=== PATIENT | male | born 1945 | race Caucasian/White ===

== ENCOUNTER 2020-11-11 07:16 | Inpatient (IN) | payer MEDICARE, OTHER ==
[~2020-11-11] VITALS: Ht 177.8 cm; Wt 128.0 kg
[~2020-11-11 07:16] MED LIST: PRED20TA PO; RANI-366 PO; [UNRECOGNIZED DRUG - CODE] PO
[2020-11-11] MEDS ORDERED: dexamethasone inj 8 MG in normal saline 50ml IV soln 50 ML IV STA (08:02)
--- NOTE | 2020-11-11 08:48 | NUR ---
WISAM #[phone] CALL HER IF PT IS BEING DICHARGED
[2020-11-11 09:06] LABS: D-DIMER 1.17 MG/L FEU (0-0.50)
[2020-11-11 09:12] LABS: ABG BASE EXCESS -5.8 mmol/L (-2.0-2.0); ABG HCO3 17.4 mmol/L (22.0-26.0); ABG OXYGEN SATURATION 97.7 % (94-97); ABG PCO2 (T) 28.9 mmHg (35.0-48.0); ABG PO2 (T) 106.1 mmHg (75.0-100.0); ALLEN'S TEST POSITIVE; FCOHb 0.3 % (0.0-3.9); FLOW 5 L/min; FMetHb 0.1 % (0.0-1.5); FO2Hb 97.3 % (94-97); PATIENT TEMPERATURE 37.4; TOTAL HEMOGLOBIN 14.7 G/dl (14.0-18.0)
[2020-11-11 09:13] LABS: C-REACTIVE PROTEIN 7.09 MG/DL (0.0-0.5)
[2020-11-11 09:25] LABS: ALANINE AMINOTRANSFERASE 48 U/L (12-78); ALBUMIN 3.1 G/DL (3.4-5.0); ALBUMIN/GLOBULIN RATIO 0.8 (1.1-1.5); ALKALINE PHOSPHATASE 81 IU/L (46-116); ANION GAP 16 (8-16); ASPARTATE AMINO TRANSFERASE 64 U/L (10-37); BILIRUBIN,TOTAL 0.3 MG/DL (0.1-1.0); BLOOD UREA NITROGEN 39 MG/DL (7-18); BUN/CREATININE RATIO 18.3 (5.4-32.0); CHLORIDE 104 MMOL/L (99-107); CREATININE 2.13 MG/DL (0.60-1.10); GLUCOSE 142 MG/DL (70-104); POTASSIUM 3.4 MMOL/L (3.5-5.1); SODIUM 140 MMOL/L (135-145); TOTAL CARBON DIOXIDE 20.4 MMOL/L (24-32); TOTAL PROTEIN 6.9 G/DL (6.4-8.2); eGFR 30 ML/MIN
[2020-11-11 09:27] LABS: BASOPHILS % (AUTO) 0.1 % (0-1); EOSINOPHILS % (AUTO) 0 % (0-6); HEMATOCRIT 42.2 % (42.0-52.0); LYMPHOCYTES # (AUTO) 0.5 X10'3 (1.1-4.8); LYMPHOCYTES % (AUTO) 13.6 % (21-51); MEAN CORPUSCULAR HEMOGLOBIN 29.1 PG (27.0-31.0); MEAN CORPUSCULAR HGB CONC 33.3 g/dL (33.0-36.5); MEAN CORPUSCULAR VOLUME 87.5 FL (78-98); MEAN PLATELET VOLUME 9.7 FL (7.4-10.4); MONOCYTES # (AUTO) 0.4 X10'3 (0-0.9); MONOCYTES % (AUTO) 11.9 % (2-12); NEUTROPHILS # (AUTO) 2.7 X10'3 (1.8-7.7); NEUTROPHILS % (AUTO) 74.4 % (42-75); PLATELET COUNT 102 X10'3 (140-440); RED BLOOD COUNT 4.82 X10'6 (4.70-6.10); RED CELL DISTRIBUTION WIDTH 13.7 % (11.5-14.5); WHITE BLOOD COUNT 3.6 X10'3 (4.5-11.0)
[2020-11-11] MEDS ORDERED: enoxaparin 100mg/ml syringe SUBCUT ONE (09:40)
[2020-11-11] MEDS ORDERED: REMDESIVIR INJ 200 MG in normal saline 100ml IV soln 60 ML IV ONE (09:40)
[2020-11-11] MEDS ORDERED: heparin 25,000 UNIT/250ml bag 250 ML IV SCH (09:45)
[2020-11-11] MEDS ORDERED: heparin 10,000 units/1 ML INJ IV ONE ×2 (09:45→09:55)
[2020-11-11] MEDS ORDERED: iohexol 350MG/ML 100ml bottle IV ONE (09:50)
[2020-11-11 10:05] LABS: PARTIAL THROMBOPLASTIN TIME 32 SECONDS (22-32)
[2020-11-11] MEDS ORDERED: azithromycin/NS 500mg/250ml 250 ML IV ONE (10:50)
[2020-11-11] MEDS ORDERED: CefTRIAXone 2gm/D5W 50ml BAG 50 ML IV ONE (10:50)
[2020-11-11] MEDS ORDERED: PIOG15TA67 PO (11:51)
[2020-11-11] MEDS ORDERED: ATOR10TA70 PO (11:51)
[2020-11-11] MEDS ORDERED: LOSA1TAB39 PO (11:51)
[2020-11-11] MEDS ORDERED: ATEN25TA PO (11:51)
[2020-11-11] MEDS ORDERED: acetaminophen 325mg tablet PO PRN ×2 (12:45)
[2020-11-11] MEDS ORDERED: potassium Cl 20 mEq SR tablet PO PRN (12:45)
[2020-11-11] MEDS ORDERED: HYDROmorphone inj. 0.5 MG/0.5 ML DISP.SYRIN IV PRN (12:45)
[2020-11-11] MEDS ORDERED: magnesium 2GM in 50ml NS 50 ML IV PRN (12:45)
[2020-11-11] MEDS ORDERED: ALBUTEROL INHALER 1 PUFF/90 MCG INHALER IH PRN (12:45)
[2020-11-11] MEDS ORDERED: magnesium hydroxide 30ml (MOM) UD suspension PO PRN (12:45)
[2020-11-11] MEDS ORDERED: acetaminophen 650mg rectal suppository RC PRN (12:45)
[2020-11-11] MEDS ORDERED: potassium Cl 40MEQ/1/2NS 520ml 520 ML IV PRN ×2 (12:45)
[2020-11-11] MEDS ORDERED: HYDROcodone/acetaminophen 5mg/325mg tablet PO PRN (12:45)
[2020-11-11] MEDS ORDERED: magnesium Cl slow-release 64mg tablet PO PRN (12:45)
[2020-11-11] MEDS ORDERED: magnesium 4gm in 100ml NS 100 ML IV PRN (12:45)
[2020-11-11] MEDS ORDERED: mag hydrox/Alum hydrox/simeth 30ml oral suspension PO PRN (12:45)
[2020-11-11] MEDS ORDERED: ondansetron/PF 4mg/2ml inj IV PRN (12:45)
[2020-11-11] MEDS ORDERED: bisacodyl 10mg suppository rectal RC PRN (12:45)
--- NOTE | 2020-11-11 14:06 | NUR ---
ATTEMPTED TO CALL REPORT TO THE FLOOR. NURSE IS BUSY AND WILL CALL BACK WHEN ABLE.
--- NOTE | 2020-11-11 14:23 | NUR ---
RECEIVED REPORT FROM EVERETTE FINNEY IN ER. PT GOING TO [id number]
[2020-11-11] MEDS: heparin, porcine 5000 units/ml vial SQ SCH (16:00)
[2020-11-11 16:30] VITALS: BP 137/84
[2020-11-11] MEDS: normal saline 1000ml 1,000 ML IV SCH (16:30)
--- NOTE | 2020-11-11 16:30 | NUR ---
PT ARRIVED TO FLOOR AT 1610
[2020-11-11] MEDS ORDERED: MESSAGE TO PHARMACY PO ONE (16:40)
[2020-11-11] MEDS ORDERED: dextrose 50%-water 50ml dispensing syringe IV PRN ×2 (16:40)
[2020-11-11] MEDS ORDERED: glucagon, human recombinant 1mg kit SUBCUT PRN (16:40)
[2020-11-11] MEDS ORDERED: dextrose ORAL solution 15 GM/59 ML bottle PO PRN ×2 (16:40)
[2020-11-11] MEDS: potassium Cl 20 mEq SR tablet PO PRN ×2 (16:56→20:50)
--- NOTE | 2020-11-11 18:15 | NUR ---
Problems reprioritized. Patient report given, questions answered & plan of care reviewed with EVERETTE AMES.
[2020-11-11] MEDS: K and/or MAG REPLACEMENT MC SCH (20:00)
[2020-11-11] MEDS: dexamethasone inj 6 MG in normal saline 50ml IV soln 50 ML IV SCH (20:35)
[2020-11-11] MEDS: docusate sod 100mg capsule PO SCH (20:37)
[2020-11-11] MEDS: famotidine 20mg tablet PO SCH (20:37)
[2020-11-11] MEDS: insulin glargine (Lantus) pen - multi-dose SQ SCH (20:49)
[2020-11-11] MEDS ORDERED: temazepam 15mg capsule PO PRN (21:00)
[2020-11-11 22:00] VITALS: BP 122/69
--- NOTE | 2020-11-11 22:19 | NUR ---
Pt stated he will try to sleep without the BIPAP tonight. Pt stated he will use our BiPAP if he feels he needs one after sleeping tonight.
[2020-11-12] MEDS: normal saline 1000ml 1,000 ML IV SCH ×3 (00:33→19:37)
[2020-11-12] MEDS: potassium Cl 20 mEq SR tablet PO PRN (00:35)
[2020-11-12] MEDS: heparin, porcine 5000 units/ml vial SQ SCH ×4 (00:35→23:38)
[2020-11-12 01:58] VITALS: BP 133/72
[2020-11-12 06:00] VITALS: BP 141/82
--- NOTE | 2020-11-12 06:05 | NUR ---
RECEIVED REPORT FROM EVERETTE AMES
--- NOTE | 2020-11-12 06:24 | NUR ---
Problems reprioritized. Patient report given, questions answered & plan of care reviewed with EVERETTE VALDEZ.
[2020-11-12] MEDS: K and/or MAG REPLACEMENT MC SCH ×2 (07:01→20:00)
[2020-11-12] MEDS: HYDROcodone/acetaminophen 10/325mg tab PO PRN (07:16)
[2020-11-12] MEDS: losartan 50mg tablet PO SCH (07:17)
[2020-11-12] MEDS: atorvastatin 10mg tablet PO SCH (07:18)
[2020-11-12] MEDS: atenolol 25mg tablet PO SCH (07:18)
[2020-11-12] MEDS: HYDROchlorothiazide 25mg tablet PO SCH (07:18)
[2020-11-12] MEDS: famotidine 20mg tablet PO SCH ×2 (07:18→19:29)
[2020-11-12] MEDS: dexamethasone inj 6 MG in normal saline 50ml IV soln 50 ML IV SCH ×2 (07:25→19:29)
[2020-11-12] MEDS: pioglitazone 15mg tablet PO SCH (07:30)
[2020-11-12] MEDS: docusate sod 100mg capsule PO SCH ×2 (07:30→20:00)
[2020-11-12] MEDS ORDERED: non-formulary drug (Losartan/Hydrochlorothiazide (Losartan-Hctz 100-25 Mg Tab) 1 TAB) PO SCH (08:00)
[2020-11-12] MEDS ORDERED: REMDESIVIR INJ 100 MG in normal saline 100ml IV soln 80 ML IV SCH (08:00)
[2020-11-12 08:33] LABS: BASOPHILS % (AUTO) 0.1 % (0-1); EOSINOPHILS % (AUTO) 0.1 % (0-6); HEMATOCRIT 43.1 % (42.0-52.0); HEMOGLOBIN 14.1 g/dl (14.0-17.9); LYMPHOCYTES # (AUTO) 0.5 X10'3 (1.1-4.8); LYMPHOCYTES % (AUTO) 12.2 % (21-51); MEAN CORPUSCULAR HEMOGLOBIN 28.5 PG (27.0-31.0); MEAN CORPUSCULAR HGB CONC 32.8 g/dL (33.0-36.5); MEAN CORPUSCULAR VOLUME 86.7 FL (78-98); MEAN PLATELET VOLUME 9.6 FL (7.4-10.4); MONOCYTES # (AUTO) 0.2 X10'3 (0-0.9); MONOCYTES % (AUTO) 6.1 % (2-12); NEUTROPHILS % (AUTO) 81.5 % (42-75); PLATELET COUNT 114 X10'3 (140-440); RED BLOOD COUNT 4.97 X10'6 (4.70-6.10); RED CELL DISTRIBUTION WIDTH 13.5 % (11.5-14.5); WHITE BLOOD COUNT 3.7 X10'3 (4.5-11.0)
[2020-11-12] MEDS: insulin Lispro (HumaLOG) vial - multi-dose SQ SCH ×3 (08:56→19:25)
[2020-11-12] MEDS: REMDESIVIR 100 MG in NS 100ml IVPB IV SCH (08:59)
[2020-11-12 09:02] LABS: ALANINE AMINOTRANSFERASE 45 U/L (12-78); ALBUMIN/GLOBULIN RATIO 0.7 (1.1-1.5); ALKALINE PHOSPHATASE 82 IU/L (46-116); ANION GAP 17 (8-16); ASPARTATE AMINO TRANSFERASE 68 U/L (10-37); BILIRUBIN,TOTAL 0.4 MG/DL (0.1-1.0); BLOOD UREA NITROGEN 37 MG/DL (7-18); BUN/CREATININE RATIO 16.8 (5.4-32.0); C-REACTIVE PROTEIN 6.63 MG/DL (0.0-0.5); CALCIUM 8.3 MG/DL (8.5-10.1); CHLORIDE 105 MMOL/L (99-107); GLUCOSE 205 MG/DL (70-104); LACTATE DEHYDROGENASE 340 U/L (85-227); MAGNESIUM 1.5 MG/DL (1.5-2.4); PHOSPHORUS 2.1 MG/DL (2.3-4.5); POTASSIUM 4.4 MMOL/L (3.5-5.1); SODIUM 142 MMOL/L (135-145); TOTAL CARBON DIOXIDE 19.7 MMOL/L (24-32); TOTAL PROTEIN 7.1 G/DL (6.4-8.2); eGFR 29 ML/MIN
[2020-11-12 09:44] LABS: D-DIMER 2.08 MG/L FEU (0-0.50); PARTIAL THROMBOPLASTIN TIME 31 SECONDS (22-32)
[2020-11-12 10:00] VITALS: BP 129/71
--- NOTE | 2020-11-12 12:08 | NUR ---
DM Consult: Pt hx T2DM A1C 7.0 appropriate given age. Addendum: 11/12/20 at [address] Amended: Links added.
[2020-11-12 14:00] VITALS: BP 133/78
[2020-11-12 18:00] VITALS: BP 121/65
--- NOTE | 2020-11-12 18:06 | NUR ---
GAVE REPORT TO EVERETTE AMES
[2020-11-12] MEDS: insulin glargine (Lantus) pen - multi-dose SQ SCH (21:19)
[2020-11-13 02:00] VITALS: BP 100/60
[2020-11-13] MEDS: normal saline 1000ml 1,000 ML IV SCH ×3 (05:59→23:47)
--- NOTE | 2020-11-13 06:37 | NUR ---
Patient in room ORTHO 4010. I have received report from Vanda GAVIRIA and had the opportunity to ask questions and assume patient care.
[2020-11-13 06:38] VITALS: BP 105/54
[2020-11-13] MEDS: REMDESIVIR 100 MG in NS 100ml IVPB IV SCH (07:16)
[2020-11-13] MEDS: dexamethasone inj 6 MG in normal saline 50ml IV soln 50 ML IV SCH ×2 (07:16→19:52)
[2020-11-13] MEDS: atorvastatin 10mg tablet PO SCH (07:16)
[2020-11-13] MEDS: docusate sod 100mg capsule PO SCH ×3 (07:16→20:00)
[2020-11-13] MEDS: famotidine 20mg tablet PO SCH ×2 (07:16→19:52)
[2020-11-13] MEDS: pioglitazone 15mg tablet PO SCH (07:16)
[2020-11-13] MEDS: heparin, porcine 5000 units/ml vial SQ SCH ×3 (07:17→23:47)
[2020-11-13] MEDS: atenolol 25mg tablet PO SCH (08:00)
[2020-11-13] MEDS: HYDROchlorothiazide 25mg tablet PO SCH (08:00)
[2020-11-13] MEDS: K and/or MAG REPLACEMENT MC SCH ×2 (08:00→19:42)
[2020-11-13] MEDS: losartan 50mg tablet PO SCH (08:00)
[2020-11-13 08:45] LABS: BASOPHILS % (AUTO) 0.1 % (0-1); EOSINOPHILS % (AUTO) 0 % (0-6); HEMATOCRIT 45.3 % (42.0-52.0); HEMOGLOBIN 15.1 g/dl (14.0-17.9); LYMPHOCYTES # (AUTO) 0.8 X10'3 (1.1-4.8); LYMPHOCYTES % (AUTO) 6.9 % (21-51); MEAN CORPUSCULAR HEMOGLOBIN 28.8 PG (27.0-31.0); MEAN CORPUSCULAR HGB CONC 33.2 g/dL (33.0-36.5); MEAN CORPUSCULAR VOLUME 86.8 FL (78-98); MEAN PLATELET VOLUME 10.2 FL (7.4-10.4); MONOCYTES # (AUTO) 0.6 X10'3 (0-0.9); MONOCYTES % (AUTO) 5.1 % (2-12); NEUTROPHILS # (AUTO) 10.2 X10'3 (1.8-7.7); NEUTROPHILS % (AUTO) 87.9 % (42-75); PLATELET COUNT 143 X10'3 (140-440); RED BLOOD COUNT 5.22 X10'6 (4.70-6.10); WHITE BLOOD COUNT 11.6 X10'3 (4.5-11.0)
[2020-11-13 09:00] LABS: D-DIMER 2.22 MG/L FEU (0-0.50); PARTIAL THROMBOPLASTIN TIME 30 SECONDS (22-32)
[2020-11-13 09:13] LABS: ALANINE AMINOTRANSFERASE 50 U/L (12-78); ALBUMIN/GLOBULIN RATIO 0.7 (1.1-1.5); ALKALINE PHOSPHATASE 86 IU/L (46-116); ANION GAP 16 (8-16); ASPARTATE AMINO TRANSFERASE 89 U/L (10-37); BILIRUBIN,TOTAL 0.3 MG/DL (0.1-1.0); BLOOD UREA NITROGEN 40 MG/DL (7-18); BUN/CREATININE RATIO 17.9 (5.4-32.0); C-REACTIVE PROTEIN 3.56 MG/DL (0.0-0.5); CALCIUM 8.4 MG/DL (8.5-10.1); CHLORIDE 105 MMOL/L (99-107); CREATININE 2.23 MG/DL (0.60-1.10); GLUCOSE 175 MG/DL (70-104); LACTATE DEHYDROGENASE 441 U/L (85-227); MAGNESIUM 1.5 MG/DL (1.5-2.4); PHOSPHORUS 2.6 MG/DL (2.3-4.5); SODIUM 143 MMOL/L (135-145); TOTAL PROTEIN 7.2 G/DL (6.4-8.2); eGFR 29 ML/MIN
[2020-11-13] MEDS: insulin Lispro (HumaLOG) vial - multi-dose SQ SCH ×3 (10:18→19:51)
[2020-11-13 13:09] VITALS: BP 116/70
[2020-11-13 16:38] VITALS: BP 120/75
[2020-11-13 18:00] VITALS: BP 153/78
--- NOTE | 2020-11-13 18:21 | NUR ---
Problems reprioritized. Patient report given, questions answered & plan of care reviewed with Shayy GAVIRIA.
--- NOTE | 2020-11-13 18:45 | NUR ---
Patient in room ORTHO 4010. I have received report from Laila GAVIRIA and had the opportunity to ask questions and assume patient care.
[2020-11-13 22:00] VITALS: BP 136/70
[2020-11-13] MEDS: insulin glargine (Lantus) pen - multi-dose SQ SCH (22:05)
[2020-11-14 02:00] VITALS: BP 169/90
--- NOTE | 2020-11-14 06:11 | NUR ---
Problems reprioritized. Patient report given, questions answered & plan of care reviewed with Laila GAVIRIA.
--- NOTE | 2020-11-14 06:22 | NUR ---
Patient in room ORTHO 4010. I have received report from Shayy GAVIRIA and had the opportunity to ask questions and assume patient care.
[2020-11-14 06:34] VITALS: BP 169/92
[2020-11-14] MEDS: REMDESIVIR 100 MG in NS 100ml IVPB IV SCH (06:54)
[2020-11-14] MEDS: dexamethasone inj 6 MG in normal saline 50ml IV soln 50 ML IV SCH ×2 (06:54→19:47)
[2020-11-14] MEDS: atorvastatin 10mg tablet PO SCH (06:55)
[2020-11-14] MEDS: docusate sod 100mg capsule PO SCH ×2 (06:55→19:36)
[2020-11-14] MEDS: famotidine 20mg tablet PO SCH ×2 (06:55→19:47)
[2020-11-14] MEDS: HYDROchlorothiazide 25mg tablet PO SCH (06:55)
[2020-11-14] MEDS: atenolol 25mg tablet PO SCH (06:55)
[2020-11-14] MEDS: pioglitazone 15mg tablet PO SCH (06:55)
[2020-11-14] MEDS: heparin, porcine 5000 units/ml vial SQ SCH ×2 (06:56→16:10)
[2020-11-14 07:52] LABS: BASOPHILS % (AUTO) 0 % (0-1); EOSINOPHILS % (AUTO) 0 % (0-6); HEMATOCRIT 40.8 % (42.0-52.0); HEMOGLOBIN 13.7 g/dl (14.0-17.9); LYMPHOCYTES # (AUTO) 0.4 X10'3 (1.1-4.8); LYMPHOCYTES % (AUTO) 4.8 % (21-51); MEAN CORPUSCULAR HEMOGLOBIN 29.2 PG (27.0-31.0); MEAN CORPUSCULAR HGB CONC 33.6 g/dL (33.0-36.5); MEAN PLATELET VOLUME 9.6 FL (7.4-10.4); MONOCYTES # (AUTO) 0.6 X10'3 (0-0.9); MONOCYTES % (AUTO) 6.8 % (2-12); NEUTROPHILS # (AUTO) 7.7 X10'3 (1.8-7.7); NEUTROPHILS % (AUTO) 88.4 % (42-75); PLATELET COUNT 115 X10'3 (140-440); RED BLOOD COUNT 4.69 X10'6 (4.70-6.10); RED CELL DISTRIBUTION WIDTH 13.8 % (11.5-14.5); WHITE BLOOD COUNT 8.7 X10'3 (4.5-11.0)
[2020-11-14] MEDS: K and/or MAG REPLACEMENT MC SCH ×2 (08:00→19:36)
[2020-11-14] MEDS: losartan 50mg tablet PO SCH (08:00)
[2020-11-14 08:35] LABS: ALANINE AMINOTRANSFERASE 42 U/L (12-78); ALBUMIN 2.6 G/DL (3.4-5.0); ALBUMIN/GLOBULIN RATIO 0.8 (1.1-1.5); ALKALINE PHOSPHATASE 70 IU/L (46-116); ANION GAP 13 (8-16); ASPARTATE AMINO TRANSFERASE 73 U/L (10-37); BILIRUBIN,TOTAL 0.3 MG/DL (0.1-1.0); BLOOD UREA NITROGEN 36 MG/DL (7-18); BUN/CREATININE RATIO 21.1 (5.4-32.0); C-REACTIVE PROTEIN 1.77 MG/DL (0.0-0.5); CALCIUM 8.5 MG/DL (8.5-10.1); CHLORIDE 110 MMOL/L (99-107); CREATININE 1.71 MG/DL (0.60-1.10); GLUCOSE 188 MG/DL (70-104); LACTATE DEHYDROGENASE 380 U/L (85-227); MAGNESIUM 1.6 MG/DL (1.5-2.4); PHOSPHORUS 2.6 MG/DL (2.3-4.5); POTASSIUM 4.1 MMOL/L (3.5-5.1); SODIUM 143 MMOL/L (135-145); TOTAL CARBON DIOXIDE 20.5 MMOL/L (24-32); eGFR 39 ML/MIN
[2020-11-14 08:47] LABS: PARTIAL THROMBOPLASTIN TIME 33 SECONDS (22-32)
[2020-11-14] MEDS: insulin Lispro (HumaLOG) vial - multi-dose SQ SCH ×4 (09:38→22:35)
[2020-11-14] MEDS: normal saline 1000ml 1,000 ML IV SCH ×2 (10:45→19:48)
[2020-11-14 12:27] VITALS: BP 119/64
[2020-11-14] MEDS: ALBUTEROL INHALER 1 PUFF/90 MCG INHALER IH PRN (13:18)
--- NOTE | 2020-11-14 13:23 | NUR ---
O2 Sat at rest on room air:_87__% If below 89%: Recovery O2 Sat at rest on __4_LPM:__92_%:___% via (mask/nasal cannula, etc..) No further documentation is necessary. If O2 Sat did not drop below 89% on room air,ambulate patient on room air. O2 Sat while ambulating on room air:___% Recovery O2 Sat while ambulating on ___LPM:___% No further documentation is necessary. If patient does not drop below 89% while ambulating, he/she does not qualify for home O2.
[2020-11-14 16:59] VITALS: BP 117/63
[2020-11-14 18:00] VITALS: BP 108/65
--- NOTE | 2020-11-14 18:25 | NUR ---
Problems reprioritized. Patient report given, questions answered & plan of care reviewed with Sahyy GAVIRIA.
--- NOTE | 2020-11-14 18:27 | NUR ---
Patient in room ORTHO 4010. I have received report from Laila GAVIRIA and had the opportunity to ask questions and assume patient care.
[2020-11-14 22:00] VITALS: BP 146/72
[2020-11-14] MEDS: insulin glargine (Lantus) pen - multi-dose SQ SCH (22:35)
[2020-11-15] MEDS: heparin, porcine 5000 units/ml vial SQ SCH ×3 (01:21→16:32)
[2020-11-15 02:00] VITALS: BP_SYST 102; BP_SYST 108; BP_DIAS 51; BP_DIAS 56
--- NOTE | 2020-11-15 06:06 | NUR ---
Problems reprioritized. Patient report given, questions answered & plan of care reviewed with Laila GAVIRIA.
[2020-11-15 06:22] VITALS: BP 138/73
[2020-11-15] MEDS: dexamethasone inj 6 MG in normal saline 50ml IV soln 50 ML IV SCH ×2 (06:55→19:29)
[2020-11-15] MEDS: REMDESIVIR 100 MG in NS 100ml IVPB IV SCH (06:55)
[2020-11-15] MEDS: atorvastatin 10mg tablet PO SCH (06:55)
[2020-11-15] MEDS: famotidine 20mg tablet PO SCH ×2 (06:56→19:29)
[2020-11-15] MEDS: atenolol 25mg tablet PO SCH (06:56)
[2020-11-15] MEDS: pioglitazone 15mg tablet PO SCH (06:56)
[2020-11-15] MEDS: HYDROchlorothiazide 25mg tablet PO SCH (06:56)
[2020-11-15] MEDS: normal saline 1000ml 1,000 ML IV SCH ×2 (06:57→16:45)
[2020-11-15] MEDS: docusate sod 100mg capsule PO SCH ×2 (07:13→19:13)
[2020-11-15] MEDS: losartan 50mg tablet PO SCH (08:00)
[2020-11-15] MEDS: K and/or MAG REPLACEMENT MC SCH ×2 (08:00→19:11)
[2020-11-15] MEDS: insulin Lispro (HumaLOG) vial - multi-dose SQ SCH ×3 (08:56→19:31)
[2020-11-15 10:13] LABS: BASOPHILS % (AUTO) 0 % (0-1); EOSINOPHILS % (AUTO) 0 % (0-6); HEMATOCRIT 42.2 % (42.0-52.0); HEMOGLOBIN 13.9 g/dl (14.0-17.9); LYMPHOCYTES # (AUTO) 0.3 X10'3 (1.1-4.8); LYMPHOCYTES % (AUTO) 3.7 % (21-51); MEAN CORPUSCULAR HEMOGLOBIN 28.8 PG (27.0-31.0); MEAN CORPUSCULAR HGB CONC 32.9 g/dL (33.0-36.5); MEAN CORPUSCULAR VOLUME 87.7 FL (78-98); MEAN PLATELET VOLUME 9.7 FL (7.4-10.4); MONOCYTES # (AUTO) 0.6 X10'3 (0-0.9); MONOCYTES % (AUTO) 7.6 % (2-12); NEUTROPHILS # (AUTO) 7.2 X10'3 (1.8-7.7); NEUTROPHILS % (AUTO) 88.7 % (42-75); PLATELET COUNT 124 X10'3 (140-440); RED BLOOD COUNT 4.81 X10'6 (4.70-6.10); WHITE BLOOD COUNT 8.1 X10'3 (4.5-11.0)
[2020-11-15 10:20] LABS: PARTIAL THROMBOPLASTIN TIME 28 SECONDS (22-32)
[2020-11-15 10:26] LABS: ALANINE AMINOTRANSFERASE 46 U/L (12-78); ALBUMIN 2.7 G/DL (3.4-5.0); ALBUMIN/GLOBULIN RATIO 0.8 (1.1-1.5); ALKALINE PHOSPHATASE 71 IU/L (46-116); ANION GAP 15 (8-16); ASPARTATE AMINO TRANSFERASE 63 U/L (10-37); BILIRUBIN,TOTAL 0.5 MG/DL (0.1-1.0); BLOOD UREA NITROGEN 31 MG/DL (7-18); BUN/CREATININE RATIO 17.1 (5.4-32.0); C-REACTIVE PROTEIN 1.08 MG/DL (0.0-0.5); CALCIUM 8.9 MG/DL (8.5-10.1); CHLORIDE 110 MMOL/L (99-107); CREATININE 1.81 MG/DL (0.60-1.10); GLUCOSE 260 MG/DL (70-104); LACTATE DEHYDROGENASE 429 U/L (85-227); MAGNESIUM 1.7 MG/DL (1.5-2.4); PHOSPHORUS 2.1 MG/DL (2.3-4.5); POTASSIUM 4.2 MMOL/L (3.5-5.1); SODIUM 146 MMOL/L (135-145); TOTAL CARBON DIOXIDE 21.3 MMOL/L (24-32); TOTAL PROTEIN 6.3 G/DL (6.4-8.2); eGFR 37 ML/MIN
[2020-11-15 10:37] VITALS: BP 148/88
[2020-11-15 10:52] LABS: D-DIMER 1.66 MG/L FEU (0-0.50)
[2020-11-15] MEDS ORDERED: PRED10TA23 PO (12:28)
[2020-11-15] MEDS ORDERED: ALBU8.5H17 INH (12:28)
[2020-11-15] MEDS ORDERED: BENZ-16 PO (12:28)
[2020-11-15] MEDS ORDERED: ASPI-611 PO (12:28)
--- NOTE | 2020-11-15 13:13 | NUR ---
Initial: Pt admit DX COVID-19 PNA, acute respiratory failure w/ hypoxemia improving, HTN, and DM per EMR. PO ~50-75% avg heart healthy/carb controlled meals partially meeting needs. SHELBY recommends ensure high protein TIDWM to better meet protein needs; notified. LBM 11/15 diarrhea per EMR. Will continue to monitor for additional protein/kcal needs this admit. Rec: 1. continue carb controlled/heart healthy diet; encourage PO 2. Ensure High Protein TIDWM; pending MD verification in EMR 3. bowel care per rx; consider anti-diarrheal if diarrhea persists and MD agreeable 4. weekly wts Addendum: 11/15/20 at [address] Amended: Links added.
--- NOTE | 2020-11-15 17:31 | NUR ---
Tech came to get me regarding patients oxygen saturation being 85%. While in the room patients oxygen got down to 78%. Applied 15 liters high flow salter and 15 liters non rebreather. Oxygen came up to 97%. While patient sleeps he is desaturating. Placed page to hospitalist asking for ABG. ABG ordered.
[2020-11-15 18:00] VITALS: BP 129/70
[2020-11-15 18:05] LABS: ABG BASE EXCESS -3.4 mmol/L (-2.0-2.0); ABG OXYGEN SATURATION 89.8 % (94-97); ABG PCO2 (T) 31.4 mmHg (35.0-48.0); ABG PO2 (T) 56.3 mmHg (75.0-100.0); ALLEN'S TEST POSITIVE; FCOHb 0.3 % (0.0-3.9); FLOW 15 L/min; FMetHb 0.1 % (0.0-1.5); FO2Hb 89.4 % (94-97); TOTAL HEMOGLOBIN 13.3 G/dl (14.0-18.0)
--- NOTE | 2020-11-15 18:15 | NUR ---
PAGER ID: [phone] MESSAGE: [id number], Kiya patient is only on heparin and the respiratory therapist said his blood from his ABG clotted multiple times. I don't know if you would rather do weight based lovenox considering his history of pulmonary embolism? rio [phone]
--- NOTE | 2020-11-15 18:30 | NUR ---
Patient in room ORTHO 4009. I have received report from Laila GAVIRIA and had the opportunity to ask questions and assume patient care.
--- NOTE | 2020-11-15 18:38 | NUR ---
PAGER ID: [phone] MESSAGE: [id number], Amna o2 at rest is 78%, no on 15 high flow salter and 15 non rebreather. Can i get a blood gas please? rio [phone]
--- NOTE | 2020-11-15 18:48 | NUR ---
Problems reprioritized. Patient report given, questions answered & plan of care reviewed with Shayy GAVIRIA.
[2020-11-15] MEDS: lactose-reduced food (Ensure High Protein) 237ml bottle PO SCH (18:59)
--- NOTE | 2020-11-15 19:06 | NUR ---
Pt switch from heparin to 100mg Lovenox BID. Pt last received heparin at 1632. Spoke with pharmacist he said it would be okay to give the dose of Lovenox at 2000 per orders.
[2020-11-15] MEDS: HYDROcodone/acetaminophen 10/325mg tab PO PRN (19:29)
[2020-11-15 22:00] VITALS: BP 165/96
--- NOTE | 2020-11-15 22:00 | NUR ---
Upon pts approval, spoke with daughter Gayatri I updated her on the pts status and plan of care. He needed a little more supplemental oxygen today after activity, up to 10-15L. She would like to updated on the pts status daily so she has an idea on when to expect him home. She lives out of town and is planning on coming to stay with him for a while once he is discharged.
[2020-11-15] MEDS: enoxaparin 100mg/ml syringe SUBCUT SCH (22:15)
[2020-11-15] MEDS: insulin glargine (Lantus) pen - multi-dose SQ SCH (22:20)
--- NOTE | 2020-11-16 00:28 | NUR ---
Pt oxygen has improved. He was on 10L at 100% I bumped him down gradually, he is now on 5L at 92%. Will continue to monitor.
[2020-11-16 02:00] VITALS: BP 151/86
[2020-11-16] MEDS: normal saline 1000ml 1,000 ML IV SCH ×3 (02:45→23:52)
[2020-11-16 06:30] VITALS: BP 142/80
--- NOTE | 2020-11-16 06:37 | NUR ---
Problems reprioritized. Patient report given, questions answered & plan of care reviewed with Iman GAVIRIA.
[2020-11-16] MEDS: lactose-reduced food (Ensure High Protein) 237ml bottle PO SCH ×3 (08:00→18:08)
[2020-11-16] MEDS: K and/or MAG REPLACEMENT MC SCH ×2 (08:00→20:00)
[2020-11-16] MEDS: HYDROchlorothiazide 25mg tablet PO SCH (08:13)
[2020-11-16] MEDS: atenolol 25mg tablet PO SCH (08:13)
[2020-11-16] MEDS: famotidine 20mg tablet PO SCH ×2 (08:13→19:27)
[2020-11-16] MEDS: docusate sod 100mg capsule PO SCH ×2 (08:13→19:27)
[2020-11-16] MEDS: losartan 50mg tablet PO SCH (08:13)
[2020-11-16] MEDS: pioglitazone 15mg tablet PO SCH (08:13)
[2020-11-16] MEDS: dexamethasone inj 6 MG in normal saline 50ml IV soln 50 ML IV SCH ×2 (08:13→19:27)
[2020-11-16] MEDS: atorvastatin 10mg tablet PO SCH (08:13)
[2020-11-16 08:18] LABS: BASOPHILS % (AUTO) 0.1 % (0-1); EOSINOPHILS % (AUTO) 0 % (0-6); HEMATOCRIT 41.3 % (42.0-52.0); HEMOGLOBIN 13.8 g/dl (14.0-17.9); LYMPHOCYTES # (AUTO) 0.3 X10'3 (1.1-4.8); LYMPHOCYTES % (AUTO) 3.5 % (21-51); MEAN CORPUSCULAR HEMOGLOBIN 29.2 PG (27.0-31.0); MEAN CORPUSCULAR HGB CONC 33.4 g/dL (33.0-36.5); MEAN CORPUSCULAR VOLUME 87.5 FL (78-98); MEAN PLATELET VOLUME 9.8 FL (7.4-10.4); MONOCYTES # (AUTO) 0.8 X10'3 (0-0.9); MONOCYTES % (AUTO) 9.5 % (2-12); NEUTROPHILS # (AUTO) 7.7 X10'3 (1.8-7.7); NEUTROPHILS % (AUTO) 86.9 % (42-75); PLATELET COUNT 131 X10'3 (140-440); RED BLOOD COUNT 4.72 X10'6 (4.70-6.10); RED CELL DISTRIBUTION WIDTH 14.1 % (11.5-14.5); WHITE BLOOD COUNT 8.8 X10'3 (4.5-11.0)
[2020-11-16] MEDS: enoxaparin 100mg/ml syringe SUBCUT SCH ×2 (08:21→19:27)
[2020-11-16 09:00] LABS: ALANINE AMINOTRANSFERASE 45 U/L (12-78); ALBUMIN 2.7 G/DL (3.4-5.0); ALBUMIN/GLOBULIN RATIO 0.8 (1.1-1.5); ALKALINE PHOSPHATASE 70 IU/L (46-116); ANION GAP 9 (8-16); ASPARTATE AMINO TRANSFERASE 54 U/L (10-37); BILIRUBIN,TOTAL 0.5 MG/DL (0.1-1.0); BLOOD UREA NITROGEN 37 MG/DL (7-18); BUN/CREATININE RATIO 22.2 (5.4-32.0); C-REACTIVE PROTEIN 0.68 MG/DL (0.0-0.5); CALCIUM 8.9 MG/DL (8.5-10.1); CHLORIDE 112 MMOL/L (99-107); CREATININE 1.67 MG/DL (0.60-1.10); GLUCOSE 202 MG/DL (70-104); MAGNESIUM 1.8 MG/DL (1.5-2.4); PHOSPHORUS 2.4 MG/DL (2.3-4.5); POTASSIUM 4.3 MMOL/L (3.5-5.1); SODIUM 146 MMOL/L (135-145); TOTAL CARBON DIOXIDE 25.3 MMOL/L (24-32); TOTAL PROTEIN 6.1 G/DL (6.4-8.2); eGFR 40 ML/MIN
[2020-11-16 09:03] LABS: D-DIMER 2.29 MG/L FEU (0-0.50); PARTIAL THROMBOPLASTIN TIME 32 SECONDS (22-32)
[2020-11-16 10:00] VITALS: BP 171/92
[2020-11-16 10:03] LABS: LACTATE DEHYDROGENASE 375 U/L (85-227)
[2020-11-16] MEDS: insulin Lispro (HumaLOG) vial - multi-dose SQ SCH ×3 (10:22→19:26)
--- NOTE | 2020-11-16 10:57 | NUR ---
DM Consult: Pt hx T2DM A1C 7.0 appropriate given age. Addendum: 11/16/20 at [address] Amended: Links added.
[2020-11-16 14:00] VITALS: BP 121/75
[2020-11-16 18:00] VITALS: BP 123/67
--- NOTE | 2020-11-16 18:30 | NUR ---
Problems reprioritized. Patient report given, questions answered & plan of care reviewed with LENI GAVIRIA.
[2020-11-16] MEDS: insulin glargine (Lantus) pen - multi-dose SQ SCH (21:44)
[2020-11-16 22:00] VITALS: BP 201/105
--- NOTE | 2020-11-16 22:24 | NUR ---
Page Sent PAGER ID: [phone] MESSAGE: call collins or cynthia at [phone] pt. has very high BP in 4009B. No PRN orders.
--- NOTE | 2020-11-16 22:30 | NUR ---
REC'D VERBAL ORDER FOR HYDROLAZINE Q6HRS PRN FOR ELEVATED B/P. WILL CONTINUE TO MONITOR
[2020-11-16] MEDS: hydrALAZINE 25 MG tablet PO PRN (23:45)
[2020-11-17] MEDS: hydrALAZINE 25 MG tablet PO PRN (05:35)
[2020-11-17 06:27] VITALS: BP 173/80
--- NOTE | 2020-11-17 06:49 | NUR ---
TISHA ADMINISTERED THIS AM FOR ELEVATED B/P AND REPORTED TO ONCOMING RNBRITTA. SLEPT MOST OF THE SHIFT AND UP AT BEDSIDE TO VOID PER URINAL. BLOOD SUGAR LAST NIGHT AT HS BETTER CONTROLLED.
[2020-11-17] MEDS: famotidine 20mg tablet PO SCH ×2 (07:51→20:01)
[2020-11-17] MEDS: HYDROchlorothiazide 25mg tablet PO SCH (07:51)
[2020-11-17] MEDS: atenolol 25mg tablet PO SCH (07:51)
[2020-11-17] MEDS: atorvastatin 10mg tablet PO SCH (07:52)
[2020-11-17] MEDS: pioglitazone 15mg tablet PO SCH (07:52)
[2020-11-17] MEDS: enoxaparin 100mg/ml syringe SUBCUT SCH ×2 (07:52→20:06)
[2020-11-17] MEDS: losartan 50mg tablet PO SCH (07:52)
[2020-11-17] MEDS: docusate sod 100mg capsule PO SCH ×2 (07:52→20:01)
[2020-11-17] MEDS: lactose-reduced food (Ensure High Protein) 237ml bottle PO SCH ×3 (08:00→18:05)
[2020-11-17] MEDS: K and/or MAG REPLACEMENT MC SCH ×2 (08:00→20:00)
[2020-11-17] MEDS: dexamethasone inj 6 MG in normal saline 50ml IV soln 50 ML IV SCH ×2 (08:03→20:07)
[2020-11-17 08:41] LABS: BASOPHILS % (AUTO) 0 % (0-1); EOSINOPHILS % (AUTO) 0 % (0-6); HEMATOCRIT 42.6 % (42.0-52.0); HEMOGLOBIN 14.1 g/dl (14.0-17.9); LYMPHOCYTES # (AUTO) 0.5 X10'3 (1.1-4.8); LYMPHOCYTES % (AUTO) 4.1 % (21-51); MEAN CORPUSCULAR HEMOGLOBIN 28.9 PG (27.0-31.0); MEAN CORPUSCULAR HGB CONC 33.1 g/dL (33.0-36.5); MEAN CORPUSCULAR VOLUME 87.6 FL (78-98); MONOCYTES # (AUTO) 1.1 X10'3 (0-0.9); MONOCYTES % (AUTO) 9.7 % (2-12); NEUTROPHILS % (AUTO) 86.2 % (42-75); PLATELET COUNT 149 X10'3 (140-440); RED BLOOD COUNT 4.87 X10'6 (4.70-6.10); RED CELL DISTRIBUTION WIDTH 13.7 % (11.5-14.5); WHITE BLOOD COUNT 11.6 X10'3 (4.5-11.0)
[2020-11-17 09:16] LABS: D-DIMER 1.46 MG/L FEU (0-0.50); PARTIAL THROMBOPLASTIN TIME 32 SECONDS (22-32)
[2020-11-17 09:33] LABS: C-REACTIVE PROTEIN 0.38 MG/DL (0.0-0.5); PHOSPHORUS 2.7 MG/DL (2.3-4.5)
--- NOTE | 2020-11-17 09:44 | NUR ---
PT REFUSING MOM AT THIS TIME
[2020-11-17 10:00] VITALS: BP 124/73
[2020-11-17] MEDS: insulin Lispro (HumaLOG) vial - multi-dose SQ SCH ×3 (10:01→20:05)
[2020-11-17] MEDS: normal saline 1000ml 1,000 ML IV SCH ×2 (10:04→20:09)
[2020-11-17 14:00] VITALS: BP 119/72
[2020-11-17 18:00] VITALS: BP 111/61
--- NOTE | 2020-11-17 18:17 | NUR ---
Problems reprioritized. Patient report given, questions answered & plan of care reviewed with LENI GAVIRIA.
[2020-11-17 22:00] VITALS: BP 138/79
[2020-11-17] MEDS: insulin glargine (Lantus) pen - multi-dose SQ SCH (22:50)
--- NOTE | 2020-11-18 01:50 | NUR ---
Patient sat up to void and his oxygen saturation decreased to the mid 70%range but it did come back up to 88% on 15liters high flow and 15 liters NRB mask after about 5-10 minutes
[2020-11-18 02:00] VITALS: BP 117/77
--- NOTE | 2020-11-18 06:20 | NUR ---
received report from clementina marie
--- NOTE | 2020-11-18 07:01 | NUR ---
VERBAL REPORT GIVEN TO JOSÉ MIGUEL GAVIRIA
[2020-11-18] MEDS: dexamethasone inj 6 MG in normal saline 50ml IV soln 50 ML IV SCH ×2 (07:28→21:34)
[2020-11-18] MEDS: pioglitazone 15mg tablet PO SCH (07:33)
[2020-11-18] MEDS: docusate sod 100mg capsule PO SCH ×2 (07:35→20:00)
[2020-11-18] MEDS: HYDROchlorothiazide 25mg tablet PO SCH (07:36)
[2020-11-18] MEDS: losartan 50mg tablet PO SCH (07:36)
[2020-11-18] MEDS: atenolol 25mg tablet PO SCH (07:37)
[2020-11-18] MEDS: famotidine 20mg tablet PO SCH ×2 (07:37→21:34)
[2020-11-18] MEDS: atorvastatin 10mg tablet PO SCH (07:37)
[2020-11-18] MEDS: enoxaparin 100mg/ml syringe SUBCUT SCH ×2 (07:39→21:34)
[2020-11-18] MEDS: normal saline 1000ml 1,000 ML IV SCH ×2 (07:41→17:12)
[2020-11-18 08:00] VITALS: BP 114/61
[2020-11-18] MEDS: K and/or MAG REPLACEMENT MC SCH ×2 (08:00→20:00)
[2020-11-18] MEDS: lactose-reduced food (Ensure High Protein) 237ml bottle PO SCH ×3 (08:47→18:30)
[2020-11-18 09:08] LABS: BASOPHILS % (AUTO) 0.2 % (0-1); EOSINOPHILS % (AUTO) 0 % (0-6); HEMATOCRIT 39.8 % (42.0-52.0); HEMOGLOBIN 13.7 g/dl (14.0-17.9); LYMPHOCYTES # (AUTO) 0.4 X10'3 (1.1-4.8); MEAN CORPUSCULAR HEMOGLOBIN 29.2 PG (27.0-31.0); MEAN CORPUSCULAR HGB CONC 34.3 g/dL (33.0-36.5); MEAN CORPUSCULAR VOLUME 85.1 FL (78-98); MEAN PLATELET VOLUME 9.7 FL (7.4-10.4); MONOCYTES % (AUTO) 9.7 % (2-12); NEUTROPHILS # (AUTO) 8.7 X10'3 (1.8-7.7); NEUTROPHILS % (AUTO) 86.1 % (42-75); PLATELET COUNT 142 X10'3 (140-440); RED BLOOD COUNT 4.68 X10'6 (4.70-6.10); RED CELL DISTRIBUTION WIDTH 13.3 % (11.5-14.5); WHITE BLOOD COUNT 10.1 X10'3 (4.5-11.0)
[2020-11-18 09:22] LABS: PARTIAL THROMBOPLASTIN TIME 30 SECONDS (22-32)
--- NOTE | 2020-11-18 09:26 | NUR ---
pt is a level 6 for bg protocol, but his sugar is 117 and he only ate a few bites of his meal, i notified pharmacy that pt needs to refill for his short acting insulin, also pt took his actos this morning, continue to monitor
[2020-11-18 09:32] LABS: C-REACTIVE PROTEIN 0.47 MG/DL (0.0-0.5); MAGNESIUM 1.8 MG/DL (1.5-2.4); PHOSPHORUS 2.2 MG/DL (2.3-4.5)
[2020-11-18 09:44] LABS: D-DIMER 1.27 MG/L FEU (0-0.50)
[2020-11-18 10:23] LABS: LARGE PLATELETS MODERATE; PLATELET ESTIMATE NORMAL
[2020-11-18] MEDS: insulin Lispro (HumaLOG) vial - multi-dose SQ SCH (13:28)
[2020-11-18 15:28] VITALS: BP 121/68
--- NOTE | 2020-11-18 18:23 | NUR ---
gave report to may,
[2020-11-18 18:30] VITALS: BP 155/97
[2020-11-18] MEDS: insulin glargine (Lantus) pen - multi-dose SQ SCH (21:39)
[2020-11-18 22:00] VITALS: BP 156/83
[2020-11-19] MEDS: normal saline 1000ml 1,000 ML IV SCH ×2 (01:33→13:31)
[2020-11-19 02:00] VITALS: BP 149/84
[2020-11-19 06:00] VITALS: BP 161/87
--- NOTE | 2020-11-19 06:20 | NUR ---
received report from lenin, rn
[2020-11-19] MEDS: losartan 50mg tablet PO SCH (07:07)
[2020-11-19] MEDS: HYDROchlorothiazide 25mg tablet PO SCH (07:08)
[2020-11-19] MEDS: atorvastatin 10mg tablet PO SCH (07:08)
[2020-11-19] MEDS: famotidine 20mg tablet PO SCH ×2 (07:08→19:27)
[2020-11-19] MEDS: atenolol 25mg tablet PO SCH (07:08)
[2020-11-19] MEDS: dexamethasone inj 6 MG in normal saline 50ml IV soln 50 ML IV SCH ×2 (07:10→19:27)
[2020-11-19] MEDS: enoxaparin 100mg/ml syringe SUBCUT SCH ×2 (07:10→19:28)
[2020-11-19] MEDS: docusate sod 100mg capsule PO SCH ×2 (07:18→20:00)
[2020-11-19] MEDS: K and/or MAG REPLACEMENT MC SCH ×2 (08:00→20:00)
[2020-11-19] MEDS: lactose-reduced food (Ensure High Protein) 237ml bottle PO SCH ×3 (08:00→18:50)
[2020-11-19] MEDS: insulin Lispro (HumaLOG) vial - multi-dose SQ SCH ×2 (09:17→13:30)
[2020-11-19] MEDS: HYDROcodone/acetaminophen 10/325mg tab PO PRN (09:23)
[2020-11-19 09:26] LABS: BASOPHILS % (AUTO) 0.4 % (0-1); EOSINOPHILS % (AUTO) 0.1 % (0-6); HEMATOCRIT 41.2 % (42.0-52.0); HEMOGLOBIN 13.6 g/dl (14.0-17.9); LYMPHOCYTES # (AUTO) 0.3 X10'3 (1.1-4.8); LYMPHOCYTES % (AUTO) 3.7 % (21-51); MEAN CORPUSCULAR HEMOGLOBIN 28.8 PG (27.0-31.0); MEAN CORPUSCULAR VOLUME 87.1 FL (78-98); MEAN PLATELET VOLUME 10.1 FL (7.4-10.4); MONOCYTES # (AUTO) 0.5 X10'3 (0-0.9); MONOCYTES % (AUTO) 6.2 % (2-12); NEUTROPHILS # (AUTO) 7.7 X10'3 (1.8-7.7); NEUTROPHILS % (AUTO) 89.6 % (42-75); PLATELET COUNT 141 X10'3 (140-440); RED BLOOD COUNT 4.73 X10'6 (4.70-6.10); RED CELL DISTRIBUTION WIDTH 13.7 % (11.5-14.5); WHITE BLOOD COUNT 8.6 X10'3 (4.5-11.0)
[2020-11-19 09:38] LABS: D-DIMER 1.18 MG/L FEU (0-0.50); PARTIAL THROMBOPLASTIN TIME 32 SECONDS (22-32)
[2020-11-19 10:01] LABS: C-REACTIVE PROTEIN 3.82 MG/DL (0.0-0.5); PHOSPHORUS 2.6 MG/DL (2.3-4.5)
[2020-11-19 16:00] VITALS: BP 159/93
[2020-11-19] MEDS: hydrALAZINE 25 MG tablet PO PRN (17:26)
[2020-11-19 18:00] VITALS: BP 184/105
--- NOTE | 2020-11-19 18:19 | NUR ---
GAVE REPORT TO May,
[2020-11-19 19:30] VITALS: BP 148/74
[2020-11-19] MEDS: insulin glargine (Lantus) pen - multi-dose SQ SCH (21:09)
[2020-11-19 22:00] VITALS: BP 169/94
[2020-11-20 02:00] VITALS: BP 165/81
[2020-11-20] MEDS ORDERED: LIDOcaine 2% 10ml TOPICAL JELLY (Urojet) TP ONE (02:30)
[2020-11-20 07:24] LABS: BASOPHILS % (AUTO) 0.2 % (0-1); EOSINOPHILS % (AUTO) 0.1 % (0-6); HEMATOCRIT 41.8 % (42.0-52.0); LYMPHOCYTES # (AUTO) 0.3 X10'3 (1.1-4.8); LYMPHOCYTES % (AUTO) 2.8 % (21-51); MEAN CORPUSCULAR HEMOGLOBIN 29.1 PG (27.0-31.0); MEAN CORPUSCULAR HGB CONC 33.4 g/dL (33.0-36.5); MEAN CORPUSCULAR VOLUME 87.1 FL (78-98); MEAN PLATELET VOLUME 9.3 FL (7.4-10.4); MONOCYTES # (AUTO) 0.5 X10'3 (0-0.9); MONOCYTES % (AUTO) 5.3 % (2-12); NEUTROPHILS # (AUTO) 9.2 X10'3 (1.8-7.7); NEUTROPHILS % (AUTO) 91.6 % (42-75); PLATELET COUNT 143 X10'3 (140-440)
[2020-11-20 07:36] LABS: PARTIAL THROMBOPLASTIN TIME 30 SECONDS (22-32)
[2020-11-20 07:48] LABS: C-REACTIVE PROTEIN 5.9 MG/DL (0.0-0.5); PHOSPHORUS 2.6 MG/DL (2.3-4.5)
[2020-11-20] MEDS: famotidine 20mg tablet PO SCH ×2 (07:56→20:28)
[2020-11-20] MEDS: enoxaparin 100mg/ml syringe SUBCUT SCH ×2 (07:56→20:29)
[2020-11-20] MEDS: atorvastatin 10mg tablet PO SCH (07:56)
[2020-11-20] MEDS: atenolol 25mg tablet PO SCH (08:00)
[2020-11-20] MEDS: losartan 50mg tablet PO SCH (08:00)
[2020-11-20] MEDS: K and/or MAG REPLACEMENT MC SCH ×2 (08:00→20:00)
[2020-11-20] MEDS: lactose-reduced food (Ensure High Protein) 237ml bottle PO SCH ×3 (08:00→19:30)
[2020-11-20] MEDS: docusate sod 100mg capsule PO SCH ×2 (08:00→20:00)
[2020-11-20] MEDS: dexamethasone inj 6 MG in normal saline 50ml IV soln 50 ML IV SCH ×2 (11:47→20:28)
[2020-11-20] MEDS: HYDROchlorothiazide 25mg tablet PO SCH (11:47)
[2020-11-20] MEDS: insulin Lispro (HumaLOG) vial - multi-dose SQ SCH (13:53)
--- NOTE | 2020-11-20 14:36 | NUR ---
Reassessment: Pt PO significantly declined past 5 days mostly 0-25%/refusing meals and Ensures not meeting needs. On 15L high flow per RT note. LBM 11/19. LDH 2394 up from 479 and CRP 5.9 up from 3.82 since yesterday per EMR. Noted last CMP 11/16. SHELBY d/w RN regarding poor PO intake; per RN pt stating he will drink ensures however, noted pt refusing recent ONS. SHELBY [employer] regarding alternative nutrition to optimize nutrition intake this admit as well as for updated CMP if MD agreeable. TF recs below in case to start nutrition support. Will continue to monitor. Rec: 1. continue carb controlled/heart healthy diet; encourage PO 2. Ensure High Protein TIDWM; encourage PO 3. Consider NG nutrition if MD Agreeable given poor PO 5 days mostly 0-25%/refusing meals and ONS on high flow oxygen. IF TF Glucerna 1.2 at 85ml/hr goal; would provide 2040ml volume/day, 2448 kcals, 1652ml free water, and 122g protein. 4. IF TF; monitor for new CMP results to more accurately assess free water needs. Last CMP 11/16 5. bowel care per rx; consider anti-diarrheal if diarrhea persists and MD agreeable 6. weekly wts Addendum: 11/20/20 at [address] Amended: Links added.
[2020-11-20 18:00] VITALS: BP 151/72
[2020-11-20] MEDS ORDERED: benzonatate 100mg capsule PO PRN (19:20)
[2020-11-20] MEDS: insulin glargine (Lantus) pen - multi-dose SQ SCH (20:39)
[2020-11-20 22:00] VITALS: BP 134/63
[2020-11-21 02:00] VITALS: BP 168/89
[2020-11-21 06:00] VITALS: BP 162/74
--- NOTE | 2020-11-21 07:31 | NUR ---
pt sitting up in bed, c/o sob, 02 sat in the 70s, on HFNC and NRB . I turned the pt up past flush on both, had pt perform DBC/pulmonary toilet and placed pt in semi prone position (would not tolerate complete prone) pt sats came up to 89-92. I notified RT and asked them to reevaluate him.
[2020-11-21] MEDS: dexamethasone inj 6 MG in normal saline 50ml IV soln 50 ML IV SCH ×2 (07:48→19:36)
[2020-11-21] MEDS: docusate sod 100mg capsule PO SCH ×2 (07:49→19:35)
[2020-11-21] MEDS: enoxaparin 100mg/ml syringe SUBCUT SCH ×2 (07:49→19:35)
[2020-11-21] MEDS: atenolol 25mg tablet PO SCH (07:52)
[2020-11-21] MEDS: HYDROchlorothiazide 25mg tablet PO SCH (07:52)
[2020-11-21] MEDS: famotidine 20mg tablet PO SCH ×2 (07:52→19:35)
[2020-11-21] MEDS: lactose-reduced food (Ensure High Protein) 237ml bottle PO SCH ×3 (07:52→18:01)
[2020-11-21] MEDS: losartan 50mg tablet PO SCH (07:52)
[2020-11-21] MEDS: atorvastatin 10mg tablet PO SCH (07:52)
[2020-11-21] MEDS: K and/or MAG REPLACEMENT MC SCH ×2 (08:00→19:27)
--- NOTE | 2020-11-21 08:16 | NUR ---
pt placed in prone position, o2 sats up to 91
[2020-11-21 08:33] LABS: BASOPHILS % (AUTO) 0 % (0-1); EOSINOPHILS % (AUTO) 0 % (0-6); LYMPHOCYTES # (AUTO) 0.2 X10'3 (1.1-4.8); LYMPHOCYTES % (AUTO) 2.1 % (21-51); MEAN CORPUSCULAR HGB CONC 33.3 g/dL (33.0-36.5); MEAN PLATELET VOLUME 9.8 FL (7.4-10.4); MONOCYTES # (AUTO) 0.3 X10'3 (0-0.9); MONOCYTES % (AUTO) 3.3 % (2-12); NEUTROPHILS # (AUTO) 10.1 X10'3 (1.8-7.7); NEUTROPHILS % (AUTO) 94.6 % (42-75); PLATELET COUNT 142 X10'3 (140-440); RED BLOOD COUNT 4.83 X10'6 (4.70-6.10); RED CELL DISTRIBUTION WIDTH 13.8 % (11.5-14.5); WHITE BLOOD COUNT 10.7 X10'3 (4.5-11.0)
[2020-11-21] MEDS: ALBUTEROL INHALER 1 PUFF/90 MCG INHALER IH PRN (08:40)
[2020-11-21 08:52] LABS: C-REACTIVE PROTEIN 10.65 MG/DL (0.0-0.5); PHOSPHORUS 2.8 MG/DL (2.3-4.5)
[2020-11-21 09:25] LABS: PARTIAL THROMBOPLASTIN TIME 30 SECONDS (22-32)
[2020-11-21] MEDS: insulin Lispro (HumaLOG) vial - multi-dose SQ SCH (09:25)
[2020-11-21 10:00] VITALS: BP 143/56
--- NOTE | 2020-11-21 11:14 | NUR ---
PAGER ID: [phone] MESSAGE: Noris [phone] re Mr Machado in [id number]- sats in 80's even on high flow tower, he sats in 90's when prone but I cant get him to do it. Can we get a sedative to help him tolerate it? Small dose?
[2020-11-21] MEDS: HYDROcodone/acetaminophen 10/325mg tab PO PRN (12:33)
--- NOTE | 2020-11-21 13:19 | NUR ---
Page Sent PAGER ID: [phone] MESSAGE: PAULINA 5199-RE: [facility]IG[facility] [place] [id number]...PT IN V TACH/V FIB HR 140'S PER ENGINE BOSS
[2020-11-21 14:00] VITALS: BP 100/49
--- NOTE | 2020-11-21 14:10 | NUR ---
PAGER ID: [phone] MESSAGE: Noris [phone] re Germán Woo- he is 80% on high flow tower, can we escalate to bipap? Pt states he wants to live
[2020-11-21] MEDS ORDERED: LORazepam 2 mg/ml vial IV ONE (15:50)
--- NOTE | 2020-11-21 17:41 | NUR ---
pt satting in the 70's on the cpap. Gave ativan and proned pt. Now at 91% and resting comfortably. Will continue to monitor
[2020-11-21 18:00] VITALS: BP 130/73
[2020-11-21 22:00] VITALS: BP 125/72
[2020-11-21] MEDS: insulin glargine (Lantus) pen - multi-dose SQ SCH (23:23)
[2020-11-22 02:00] VITALS: BP 134/74
[2020-11-22] MEDS: HYDROcodone/acetaminophen 10/325mg tab PO PRN ×2 (05:24→17:41)
[2020-11-22 06:00] VITALS: BP 122/80
--- NOTE | 2020-11-22 06:20 | NUR ---
Problems reprioritized. Patient report given, questions answered & plan of care reviewed with Noris GAVIRIA.
[2020-11-22] MEDS: lactose-reduced food (Ensure High Protein) 237ml bottle PO SCH ×3 (07:30→18:29)
[2020-11-22] MEDS: docusate sod 100mg capsule PO SCH ×2 (07:30→20:40)
[2020-11-22] MEDS: famotidine 20mg tablet PO SCH ×2 (07:30→20:40)
[2020-11-22] MEDS: atorvastatin 10mg tablet PO SCH (07:30)
[2020-11-22] MEDS: dexamethasone inj 6 MG in normal saline 50ml IV soln 50 ML IV SCH ×3 (07:30→22:52)
[2020-11-22] MEDS: enoxaparin 100mg/ml syringe SUBCUT SCH ×2 (07:31→20:40)
[2020-11-22] MEDS: atenolol 25mg tablet PO SCH (07:34)
[2020-11-22] MEDS: HYDROchlorothiazide 25mg tablet PO SCH (07:34)
[2020-11-22] MEDS: losartan 50mg tablet PO SCH (07:34)
[2020-11-22] MEDS: K and/or MAG REPLACEMENT MC SCH ×2 (08:00→20:00)
[2020-11-22 08:29] LABS: BASOPHILS % (AUTO) 0.3 % (0-1); EOSINOPHILS % (AUTO) 0 % (0-6); HEMATOCRIT 39.3 % (42.0-52.0); HEMOGLOBIN 12.8 g/dl (14.0-17.9); LYMPHOCYTES # (AUTO) 0.3 X10'3 (1.1-4.8); LYMPHOCYTES % (AUTO) 2.3 % (21-51); MEAN CORPUSCULAR HEMOGLOBIN 28.4 PG (27.0-31.0); MEAN CORPUSCULAR HGB CONC 32.6 g/dL (33.0-36.5); MEAN CORPUSCULAR VOLUME 87.1 FL (78-98); MONOCYTES # (AUTO) 0.4 X10'3 (0-0.9); MONOCYTES % (AUTO) 3.1 % (2-12); NEUTROPHILS # (AUTO) 11.2 X10'3 (1.8-7.7); NEUTROPHILS % (AUTO) 94.3 % (42-75); PLATELET COUNT 143 X10'3 (140-440); RED BLOOD COUNT 4.51 X10'6 (4.70-6.10); RED CELL DISTRIBUTION WIDTH 13.9 % (11.5-14.5); WHITE BLOOD COUNT 11.8 X10'3 (4.5-11.0)
[2020-11-22] MEDS: insulin Lispro (HumaLOG) vial - multi-dose SQ SCH ×2 (08:47→18:41)
[2020-11-22 09:03] LABS: C-REACTIVE PROTEIN 9.52 MG/DL (0.0-0.5); PHOSPHORUS 2.7 MG/DL (2.3-4.5)
[2020-11-22 09:34] LABS: PARTIAL THROMBOPLASTIN TIME 29 SECONDS (22-32)
[2020-11-22 10:00] VITALS: BP 102/54
[2020-11-22 10:08] LABS: D-DIMER 1.02 MG/L FEU (0-0.50)
--- NOTE | 2020-11-22 11:56 | NUR ---
pt 02 sat in mid 80's. Placed pt in prone position and 02 sat (once recovered) up to 94%
--- NOTE | 2020-11-22 12:42 | NUR ---
sat 96%
[2020-11-22 14:00] VITALS: BP 145/75
--- NOTE | 2020-11-22 15:44 | NUR ---
Denilson from Short stay here to start IV - I now have IV access so called pharmacy to make sure ok to hang decadron. Pharmacist Jose says ok to hang 0800 dose and will not interrupt timing of 2000 dose.
--- NOTE | 2020-11-22 15:57 | NUR ---
sats 95% prone
--- NOTE | 2020-11-22 17:17 | NUR ---
PAGER ID: [phone] MESSAGE: Noris [phone] kuldip Germán Woo- has poor po intake, can we start some IV fluids? He is doing well on cpap, prone, 95%.
[2020-11-22 18:00] VITALS: BP 107/59
--- NOTE | 2020-11-22 18:30 | NUR ---
Patient in room ORTHO 4011. I have received report from Noris GAVIRIA and had the opportunity to ask questions and assume patient care.
[2020-11-22] MEDS: normal saline 1000ml 1,000 ML IV SCH (20:41)
[2020-11-22] MEDS: insulin glargine (Lantus) pen - multi-dose SQ SCH (21:10)
[2020-11-22 22:00] VITALS: BP 116/57
--- NOTE | 2020-11-22 23:24 | NUR ---
Patient refusing to lay on side or lay prone, Daughter on speaker phone and patient upset with staffing that he can't have water whenever he wants, educated that staff needs to help with fluids due to his mask and patient's oxygen saturations drop down to 70's when trying to drink. Patient laying on back and 89% on CPAP right now.
[2020-11-23 02:00] VITALS: BP 119/73
[2020-11-23 06:00] VITALS: BP 105/59
--- NOTE | 2020-11-23 06:34 | NUR ---
Problems reprioritized. Patient report given, questions answered & plan of care reviewed with Noris GAVIRIA.
[2020-11-23] MEDS: dexamethasone inj 6 MG in normal saline 50ml IV soln 50 ML IV SCH (07:45)
[2020-11-23] MEDS: docusate sod 100mg capsule PO SCH ×2 (07:46→20:45)
[2020-11-23] MEDS: enoxaparin 100mg/ml syringe SUBCUT SCH ×2 (07:46→20:45)
[2020-11-23] MEDS: atorvastatin 10mg tablet PO SCH (07:46)
[2020-11-23] MEDS: famotidine 20mg tablet PO SCH ×2 (07:46→20:44)
[2020-11-23] MEDS: atenolol 25mg tablet PO SCH (08:00)
[2020-11-23] MEDS: HYDROchlorothiazide 25mg tablet PO SCH (08:00)
[2020-11-23] MEDS: losartan 50mg tablet PO SCH (08:00)
[2020-11-23] MEDS: K and/or MAG REPLACEMENT MC SCH (08:00)
[2020-11-23] MEDS: lactose-reduced food (Ensure High Protein) 237ml bottle PO SCH ×3 (08:00→18:52)
[2020-11-23 08:45] LABS: BASOPHILS % (AUTO) 0.1 % (0-1); EOSINOPHILS % (AUTO) 0 % (0-6); HEMATOCRIT 39.9 % (42.0-52.0); HEMOGLOBIN 13.2 g/dl (14.0-17.9); LYMPHOCYTES # (AUTO) 0.3 X10'3 (1.1-4.8); MEAN CORPUSCULAR HEMOGLOBIN 28.8 PG (27.0-31.0); MEAN CORPUSCULAR HGB CONC 33.1 g/dL (33.0-36.5); MEAN CORPUSCULAR VOLUME 87.1 FL (78-98); MEAN PLATELET VOLUME 9.8 FL (7.4-10.4); MONOCYTES # (AUTO) 0.4 X10'3 (0-0.9); MONOCYTES % (AUTO) 2.7 % (2-12); NEUTROPHILS # (AUTO) 14.6 X10'3 (1.8-7.7); NEUTROPHILS % (AUTO) 95.2 % (42-75); PLATELET COUNT 159 X10'3 (140-440); RED BLOOD COUNT 4.58 X10'6 (4.70-6.10); RED CELL DISTRIBUTION WIDTH 14.1 % (11.5-14.5); WHITE BLOOD COUNT 15.4 X10'3 (4.5-11.0)
[2020-11-23 09:11] LABS: ALANINE AMINOTRANSFERASE 32 U/L (12-78); ALBUMIN/GLOBULIN RATIO 0.5 (1.1-1.5); ALKALINE PHOSPHATASE 65 IU/L (46-116); ANION GAP 8 (8-16); ASPARTATE AMINO TRANSFERASE 47 U/L (10-37); BILIRUBIN,TOTAL 0.7 MG/DL (0.1-1.0); BLOOD UREA NITROGEN 53 MG/DL (7-18); BUN/CREATININE RATIO 30.6 (5.4-32.0); C-REACTIVE PROTEIN 11.12 MG/DL (0.0-0.5); CALCIUM 9.1 MG/DL (8.5-10.1); CHLORIDE 105 MMOL/L (99-107); CREATININE 1.73 MG/DL (0.60-1.10); GLUCOSE 228 MG/DL (70-104); LACTATE DEHYDROGENASE 517 U/L (85-227); PHOSPHORUS 2.5 MG/DL (2.3-4.5); POTASSIUM 3.9 MMOL/L (3.5-5.1); SODIUM 144 MMOL/L (135-145); TOTAL CARBON DIOXIDE 30.7 MMOL/L (24-32); TOTAL PROTEIN 6.3 G/DL (6.4-8.2); eGFR 39 ML/MIN
[2020-11-23 09:15] LABS: PARTIAL THROMBOPLASTIN TIME 29 SECONDS (22-32)
[2020-11-23 10:00] VITALS: BP 126/62
[2020-11-23] MEDS: insulin Lispro (HumaLOG) vial - multi-dose SQ SCH ×3 (10:17→18:39)
[2020-11-23 14:00] VITALS: BP 148/67
[2020-11-23] MEDS: HYDROcodone/acetaminophen 10/325mg tab PO PRN ×2 (15:32→22:34)
[2020-11-23] MEDS: normal saline 1000ml 1,000 ML IV SCH (15:56)
--- NOTE | 2020-11-23 17:23 | NUR ---
pt has been refusing to spend time in prone position. He will alternate side lying positions. Most of the time pt sats in the 85-87 range. He states he is tired of proning. I try to encourage him to prone because he sats 90-95% on bipap at 100%. I have consulted numerous times with RT, they have tried to adjust bipap settings to maximize his oxygenation, however he still ends up in the 83-86 range and takes longer to recover
--- NOTE | 2020-11-23 17:54 | NUR ---
F/u 11/23: Pt continues to have poor PO mostly 0% or refusing meals past 8 days overall 0-25% avg now since admit 12 days not meeting needs. Pt only drinking Ensure High Protein TIDWM providing 480 kcals and 48g protein per day. Noted pt refusing to lay or side or prone per EMR and today not recovering past 78% saturations per latest RT note. RD d/w RN and michelle WYNN regarding pt need for nutrition support at this juncture given poor nutrition status. RN reports pt likely to refuse corpak and likely not stable enough to place at this time; SHELBY martinez MD regarding temporary PPN since pt currently has peripheral IV as only access. Will likely need TPN to optimize nutrition status if unable to provide enteral nutrition. PPN recs below given pt needs. Given day 8 little nutrition in addition to mild weakness pt meets minimum non-severe malnutrition criteria; MD notified. Rec: 1. continue carb controlled/heart healthy diet; encourage PO 2. Ensure High Protein TIDWM; encourage PO. Consider Ensure Enlive ONS given only intake past 8 days 3. Consider NG nutrition if MD Agreeable given poor PO hx 8 days not meeting needs. IF TF Glucerna 1.2 at 85ml/hr goal; would provide 2040ml volume/day, 2448 kcals, 1652ml free water, and 122g protein. 4. IF TF; additional water flush 200ml Q4H; serum Na 144 this AM 5. IF pt not stable enough for NG feeds or refuses; consider PPN to assist in meeting nutrition needs given PIV only access. IF PN would ultimately benefit from TPN to meet protein/kcal needs. IF continuous PPN; 2:1 Clinimix E 4.25/10 at 106ml/hr w/ 100ml 20% intralipids to run separately at 8.33ml/hr for 12 hours each day. Would provide 2544ml volume, 108g AA, 254g DEX (1.38mg/kg/min), and 1496 total kcals. 6. bowel care per rx; consider anti-diarrheal if diarrhea persists and MD agreeable 7. weekly wts Addendum: 11/23/20 at [address] Amended: Links added.
--- NOTE | 2020-11-23 18:30 | NUR ---
Patient in room ORTHO 4011. I have received report from Noris GAVIRIA and had the opportunity to ask questions and assume patient care.
--- NOTE | 2020-11-23 19:00 | NUR ---
At bedside with MD, patients family would like to discuss with MD and patient comfort care but patient refusing to speak with MD and family about this option at this time.
--- NOTE | 2020-11-23 19:30 | NUR ---
Spoke with daughter and the family is on their way from out of the area. Educated the family on visitor policy. Family wants assistance with their father to sign a will. veterans services specialist consult placed. Family will arrive in the area in the morning.
[2020-11-23] MEDS ORDERED: magnesium Cl slow-release 64mg tablet PO PRN (20:15)
[2020-11-23] MEDS ORDERED: potassium Cl 20 mEq SR tablet PO PRN ×2 (20:15)
[2020-11-23] MEDS ORDERED: potassium Cl 40MEQ/1/2NS 520ml 520 ML IV PRN (20:15)
[2020-11-23] MEDS ORDERED: magnesium 4gm in 100ml NS 100 ML IV PRN (20:15)
[2020-11-23] MEDS: insulin glargine (Lantus) pen - multi-dose SQ SCH (21:04)
--- NOTE | 2020-11-23 21:11 | NUR ---
Patient's SpO2 dropped into 50's, 40's. Bipap settings increased while patient recovering. SpO2 reached 88%%. Settings left as indicated. Addendum: 11/23/20 at 2116 by [address] RT Amended: Links added.
[2020-11-23 22:00] VITALS: BP 117/66
--- NOTE | 2020-11-23 22:47 | NUR ---
Patient states he just wants to , Patient refusing to turn on side or prone. Patients oxygen saturation 70-80's while on back. MD called and given order for morphine. Code status discussed with doctor and needs to be revisited with daytime doctor and family.
[2020-11-23] MEDS: morphine 2 MG/ML inj. syringe IV PRN (23:15)
[2020-11-24] MEDS ORDERED: methylPREDNISolone sod succ 125mg/2ml vial IV SCH
[2020-11-24] MEDS: morphine 2 MG/ML inj. syringe IV PRN ×3 (01:37→07:32)
[2020-11-24 02:00] VITALS: BP 99/62
--- NOTE | 2020-11-24 03:25 | NUR ---
Patient states he wants to be made comfort care, paged but no response. Daughters drove all night from out of area. Per night nursing floor supervisor patients daughters are allowed to visit. Daughters educated on covid precautions. Per nursing floor supervisor this is end of life care so daughters can come visit.
[2020-11-24 05:30] VITALS: BP 99/63
--- NOTE | 2020-11-24 06:50 | NUR ---
Patient in room ORTHO 4011. I have received report from EVERETTE Real and had the opportunity to ask questions and assume patient care.
--- NOTE | 2020-11-24 06:55 | NUR ---
Problems reprioritized. Patient report given, questions answered & plan of care reviewed with Gabriela RN.
[2020-11-24] MEDS ORDERED: LORazepam 2 mg/ml vial IV PRN ×2 (07:45→10:45)
[2020-11-24] MEDS ORDERED: morphine 10mg/0.5ml (conc. morphine) oral syringe PO PRN (07:45)
[2020-11-24] MEDS ORDERED: morphine 2 MG/ML inj. syringe IV PRN (07:45)
[2020-11-24] MEDS ORDERED: morphine 10mg/ml inj. IV ONE (07:55)
[2020-11-24] MEDS ORDERED: K and/or MAG REPLACEMENT MC SCH (08:00)
[2020-11-24] MEDS ORDERED: LORazepam 2 mg/ml vial IV ONE (10:05)
--- NOTE | 2020-11-24 11:25 | NUR ---
RN IS TO DOCUMENT YES TO ALL APPLICABLE AREAS Pronouncement of : 1. Time Physician Notified:1130 2. Date of :11/24/2020 3. Time of : 1125 4. DNR/Withdraw life support documented:729 5. Monitor strip has been placed on chart:No. Pt was on tele monitor. 6. Assessment process is of one-minute duration and includes following criteria: a) Patient is unresponsive to all stimuli:Y b) Pupils fixed and non-reactive:Y c) Auscultation of precordium reveals absence of heart tones:Y d) Auscultation of lungs reveals absence of breath sounds:Y e) Absence of blood pressure / all vital signs:Y f) QRS complexes are not present on monitor / EKG strip:Y g) Pacer spikes without capture:N/A
--- NOTE | 2020-11-24 13:50 | NUR ---
F/u: Noted patient has been made NPO and code status has been changed to DNR with comfort care. [facility] 11/21. Will continue to follow per LOS. Recommendations: 1) Bowel care per comfort care measures Addendum: 11/24/20 at [address] Amended: Links added.
== END 2020-11-24 16:58 | DRG 177 ==
LOC: ER 07:16 → ED HOLD 12:53 → ORTHO 4S 16:20
PROVIDERS: ADMIT Family Medicine; ATTEND Family Medicine
PROC: XW033E5 Introduction of Remdesivir Anti-infective into Peripheral Vein, Percutaneous Approach, New Technology Group 5 (ICD-10-PCS; principal; 2020-11-11)
PROC: B32T1ZZ Computerized Tomography (CT Scan) of Left Pulmonary Artery using Low Osmolar Contrast (ICD-10-PCS; 2020-11-11)
PROC: B3201ZZ Computerized Tomography (CT Scan) of Thoracic Aorta using Low Osmolar Contrast (ICD-10-PCS; 2020-11-11)
PROC: B32S1ZZ Computerized Tomography (CT Scan) of Right Pulmonary Artery using Low Osmolar Contrast (ICD-10-PCS; 2020-11-11)
PROC: 5A09357 Assistance with Respiratory Ventilation, Less than 24 Consecutive Hours, Continuous Positive Airway Pressure (ICD-10-PCS; 2020-11-14)
PROC: 5A09357 Assistance with Respiratory Ventilation, Less than 24 Consecutive Hours, Continuous Positive Airway Pressure (ICD-10-PCS; 2020-11-15)
PROC: 5A09357 Assistance with Respiratory Ventilation, Less than 24 Consecutive Hours, Continuous Positive Airway Pressure (ICD-10-PCS; 2020-11-16)
PROC: 5A0935A Assistance with Respiratory Ventilation, Less than 24 Consecutive Hours, High Flow/Velocity Cannula (ICD-10-PCS; 2020-11-16)
PROC: 5A0945A Assistance with Respiratory Ventilation, 24-96 Consecutive Hours, High Flow/Velocity Cannula (ICD-10-PCS; 2020-11-17)
PROC: 5A0935A Assistance with Respiratory Ventilation, Less than 24 Consecutive Hours, High Flow/Velocity Cannula (ICD-10-PCS; 2020-11-19)
PROC: 5A0935A Assistance with Respiratory Ventilation, Less than 24 Consecutive Hours, High Flow/Velocity Cannula (ICD-10-PCS; 2020-11-20)
PROC: 5A0935A Assistance with Respiratory Ventilation, Less than 24 Consecutive Hours, High Flow/Velocity Cannula (ICD-10-PCS; 2020-11-21)
PROC: 5A09457 Assistance with Respiratory Ventilation, 24-96 Consecutive Hours, Continuous Positive Airway Pressure (ICD-10-PCS; 2020-11-21)
DX: U07.1 COVID-19 (principal); J96.01 Acute respiratory failure with hypoxia; J12.82 Pneumonia due to coronavirus disease 2019; D68.69 Other thrombophilia; N17.9 Acute kidney failure, unspecified; Z68.41 Body mass index [BMI] 40.0-44.9, adult; Z66 Do not resuscitate; I12.9 Hypertensive chronic kidney disease with stage 1 through stage 4 chronic kidney disease, or unspecified chronic kidney disease; E87.6 Hypokalemia; E66.9 Obesity, unspecified; G47.33 Obstructive sleep apnea (adult) (pediatric); E11.22 Type 2 diabetes mellitus with diabetic chronic kidney disease; N18.9 Chronic kidney disease, unspecified; E78.5 Hyperlipidemia, unspecified; Z78.9 Other specified health status; Z79.01 Long term (current) use of anticoagulants; Z86.711 Personal history of pulmonary embolism; Z88.8 Allergy status to other drugs, medicaments and biological substances; Z51.5 Encounter for palliative care
CPT/HCPCS: 36415; 36600; 71045; 71275; 80053; 82803; 82948; 83036; 83615; 83735; 83880; 84100; 84145; 84484; 85008; 85018; 85025; 85379; 85610; 85730; 86140; 87081; 87635; 93005; 94660; 94760; 96365; 96367; 97110; 97116; 97162; 97530; 97535; 99291; C9803; G0378; J0456; J0696; J1100; J1644; J1650; J1815; J2060; J2270; J2930; J7030; Q9967